=== PATIENT | female | born 1985 | race Caucasian/White ===

== ENCOUNTER 2018-10-10 07:38 | Emergency (ER) | payer BC ==
[2018-10-10] MEDS ORDERED: EPINEPHrine 1 MG/ML SDV IM ONE (07:57)
[2018-10-10] MEDS: diphenhydrAMINE 50 MG/ML SDV IM ONE ×2 (08:09→08:27)
[2018-10-10] MEDS: methylPREDNISolone Sodium Succinate 125 MG/2 ML SDV IM ONE ×2 (08:09→08:27)
[2018-10-10] MEDS ORDERED: Sodium Chloride 0.9% 1,000 ML IV ONE (08:16)
--- NOTE | 2018-10-10 08:26 | EDM.PDOC ---
ED HPI GENERAL MEDICAL PROBLEM - General Chief Complaint: Allergic Reaction Stated Complaint: SWELLING, HIVES Time Seen by Provider: 10/10/18 08:15 - History of Present Illness INITIAL COMMENTS - FREE TEXT/NARRATIVE: HISTORY AND PHYSICAL: History of present illness: Patient is a 33-year-old white female with history of urticaria who presents with urticarial rash she states she's had hoarseness and feels like her throat is tight and complains of difficulty breathing on arrival her vital signs are stable pulse oximetry is 98% Review of systems: As per history of present illness and below otherwise all systems reviewed and negative. Past medical history: As per history of present illness and as reviewed below otherwise noncontributory. Surgical history: As per history of present illness and as reviewed below otherwise noncontributory. Social history: No reported history of drug or alcohol abuse. Family history: As per history of present illness and as reviewed below otherwise noncontributory. Physical exam: HEENT: Atraumatic, normocephalic, pupils reactive, negative for conjunctival pallor or scleral icterus, mucous membranes moist, throat clear, neck supple, nontender, trachea midline. Lungs: Clear to auscultation, breath sounds equal bilaterally, chest nontender. Heart: S1S2, regular, negative for clicks, rubs, or JVD. Abdomen: Soft, nondistended, nontender. Negative for masses or hepatosplenomegaly. Negative for costovertebral tenderness. Pelvis: Stable nontender. Genitourinary: Deferred. Rectal: Deferred. Extremities: Atraumatic, negative for cords or calf pain. Neurovascular unremarkable. Neuro: Awake, alert, oriented. Cranial nerves II through XII unremarkable. Cerebellum unremarkable. Motor and sensory unremarkable throughout. Exam nonfocal. Diagnostics: Chest x-ray soft tissue neck Therapeutics: Epinephrine 0.3 I,M Solu-Medrol 125 IV Benadryl 50 IV Impression: #1 urticaria Definitive disposition and diagnosis as appropriate pending reevaluation and review of above. - Related Data Allergies Allergy/AdvReac Type Severity Reaction Status Date / Time spironolactone Allergy Facial Verified 10/10/18 07:41 Swelling Home Meds: Home Meds Dextroamphetamine/Amphetamine [Adderall] 15 mg PO ASDIRECTED 10/10/18 [History] Venlafaxine [Effexor] 75 mg PO DAILY 10/10/18 [History] Past Medical History HEENT History: Reports: Other (See Below) Other HEENT History: meningitis as child Cardiovascular History: Reports: None Respiratory History: Reports: Asthma, Other (See Below) Other Respiratory History: allergy induced, no troubles since lived in [place] Gastrointestinal History: Reports: None Genitourinary History: Reports: STD, Other (See Below) Other Genitourinary History: hx of herpes 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: Musculoskeletal History: Reports: None Neurological History: Reports: None Psychiatric History: Reports: None Endocrine/Metabolic History: Reports: None Hematologic History: Reports: None Immunologic History: Reports: None Oncologic (Cancer) History: Reports: None Dermatologic History: Reports: Psoriasis - Infectious Disease History Infectious Disease History: Reports: Herpes, Other (See Below) Other Infectious Disease History: not active currently - Past Surgical History Head Surgeries/Procedures: Reports: None HEENT Surgical History: Reports: None Cardiovascular Surgical History: Reports: None Respiratory Surgical History: Reports: None GI Surgical History: Reports: None Female Surgical History: Reports: None Endocrine Surgical History: Reports: None Neurological Surgical History: Reports: None Musculoskeletal Surgical History: Reports: None Oncologic Surgical History: Reports: None Dermatological Surgical History: Reports: None Social & Family History - Family History Family Medical History: Noncontributory HEENT: Reports: None Cardiac: Reports: [place] Neurological: Reports: Other (See Below) Other Neurological Family History: ALS probable in father Dermatologic: Reports: Psoriasis - Tobacco Use Smoking Status *Q: Never Smoker Second Hand Smoke Exposure: No - Caffeine Use Caffeine Use: Reports: Coffee - Recreational Drug Use Recreational Drug Use: No ED ROS ALLERGIC REACTION - Review of Systems Review Of Systems: ROS reveals no pertinent complaints other than HPI. ED EXAM GENERAL NO PERIP PULSE - Physical Exam Exam: See Below (See dictation) Course - Vital Signs Last Recorded V/S: Last Vital Signs Temp 36.6 C 10/10/18 07:42 Pulse 103 H 10/10/18 07:42 Resp 18 10/10/18 07:42 BP 124/64 10/10/18 07:42 Pulse Ox 97 10/10/18 07:42 - Orders/Labs/Meds Orders: Active Orders 24 hr Category Date Time Status Chest 1V Frontal [CR] Stat Exams 10/10/18 08:25 Ordered Neck Soft Tissue [CR] Stat Exams 10/10/18 08:25 Ordered Labs: Laboratory Tests 10/10/18 10/10/18 10/10/18 Range/Units 08:20 08:20 08:30 WBC 9.75 (4.0-11.0) K/uL RBC 4.88 (4.30-5.90) M/uL Hgb 14.6 (12.0-16.0) g/dL Hct 42.4 (36.0-46.0) % MCV 86.9 (80.0-98.0) fL MCH 29.9 (27.0-32.0) pg MCHC 34.4 (31.0-37.0) g/dL RDW Std Deviation 41.7 (28.0-62.0) fl RDW Coeff of Keturah 13 (11.0-15.0) % Plt Count 176 (150-400) K/uL MPV 10.10 (7.40-12.00) fL Neut % (Auto) 71.7 (48.0-80.0) % Lymph % (Auto) 24.1 (16.0-40.0) % [place] % (Auto) 4.0 (0.0-15.0) % Eos % (Auto) 0.1 (0.0-7.0) % Baso % (Auto) 0.1 (0.0-1.5) % Neut # (Auto) 7.0 H (1.4-5.7) K/uL Lymph # (Auto) 2.4 (0.6-2.4) K/uL [place] # (Auto) 0.4 (0.0-0.8) K/uL Eos # (Auto) 0.0 (0.0-0.7) K/uL Baso # (Auto) 0.0 (0.0-0.1) K/uL Nucleated RBC % 0.0 /100WBC Nucleated RBCs # 0 K/uL Sodium 138 (136-145) mmol/L Potassium 4.0 (3.5-5.1) mmol/L Chloride 104 (98-107) mmol/L Carbon Dioxide 31.0 (21.0-32.0) mmol/L BUN 17 (7.0-18.0) mg/dL Creatinine 0.8 (0.6-1.0) mg/dL Est Cr Clr Drug Dosing 79.85 mL/min Estimated GFR (MDRD) > 60.0 ml/min Glucose 90 (74-106) mg/dL Calcium 9.3 (8.5-10.1) mg/dL Total Bilirubin 0.4 (0.2-1.0) mg/dL AST 18 (15-37) IU/L ALT 18 (14-63) IU/L Alkaline Phosphatase 63 (46-116) U/L Total Protein 7.0 (6.4-8.2) g/dL Albumin 3.8 (3.4-5.0) g/dL Globulin 3.2 (2.6-4.0) g/dL Albumin/Globulin Ratio 1.2 (0.9-1.6) HCG, Qual NEGATIVE (NEG) Meds: Medications Discontinued Medications Generic Name Dose Route Start Last Admin Trade Name Freq PRN Reason Stop Dose Admin Diphenhydramine HCl 50 mg 10/10/18 07:57 10/10/18 08:27 Benadryl IM 10/10/18 07:58 Not Given ONETIME ONE Diphenhydramine HCl 50 mg 10/10/18 08:27 10/10/18 08:28 Benadryl IVPUSH 10/10/18 08:28 50 mg ONETIME ONE Administration Epinephrine HCl 0.3 mg 10/10/18 07:57 10/10/18 08:09 Adrenalin IM 10/10/18 07:58 0.3 mg ONETIME ONE Administration Sodium Chloride 1,000 mls @ 999 mls/hr 10/10/18 08:16 10/10/18 08:18 Normal Saline IV 10/10/18 09:16 999 mls/hr .Bolus ONE Administration Methylprednisolone Sodium Succinate 125 mg 10/10/18 07:57 10/10/18 08:27 Solu-Medrol IM 10/10/18 07:58 Not Given ONETIME ONE Methylprednisolone Sodium Succinate 125 mg 10/10/18 08:27 10/10/18 08:28 Solu-Medrol IVPUSH 10/10/18 08:28 125 mg ONETIME ONE Administration Departure - Departure Time of Disposition: 09:26 Disposition: Home, Self-Care 01 Condition: Good Clinical Impression: Urticaria - Discharge Information Referrals: PCP,None [Primary Care Provider] - Additional Instructions: The following information is given to patients seen in the emergency department who are being discharged to home. This information is to outline your options for follow-up care. We provide all patients seen in our emergency department with a follow-up referral. The need for follow-up, as well as the timing and circumstances, are variable depending upon the specifics of your emergency department visit. If you don't have a primary care physician on staff, we will provide you with a referral. We always advise you to contact your personal physician following an emergency department visit to inform them of the circumstance of the visit and for follow-up with them and/or the need for any referrals to a consulting specialist. The emergency department will also refer you to a specialist when appropriate. This referral assures that you have the opportunity for followup care with a specialist. All of these measure are taken in an effort to provide you with optimal care, which includes your followup. Under all circumstances we always encourage you to contact your private physician who remains a resource for coordinating your care. When calling for followup care, please make the office aware that this follow-up is from your recent emergency room visit. If for any reason you are refused follow-up, please contact the [facility] emergency department at and asked to speak to the emergency department charge nurse. Medrol Zantac Benadryl as directed EpiPen as directed follow private medical doctor for allergy immunology referral return as needed as discussed - My Orders Last 24 Hours: My Active Orders 10/10/18 08:25 Chest 1V Frontal [CR] Stat Neck Soft Tissue [CR] Stat - Assessment/Plan Last 24 Hours: My Active Orders 10/10/18 08:25 Chest 1V Frontal [CR] Stat Neck Soft Tissue [CR] Stat
[2018-10-10] MEDS ORDERED: diphenhydrAMINE 50 MG/ML SDV IVPUSH ONE (08:27)
[2018-10-10] MEDS ORDERED: methylPREDNISolone Sodium Succinate 125 MG/2 ML SDV IVPUSH ONE (08:27)
[2018-10-10 08:58] LABS: CHLORIDE,CL 104 mmol/L (98-107); SODIUM,NA 138 mmol/L (136-145)
--- NOTE | 2018-10-10 10:08 | CR ---
EXAMINATION: PA chest radiograph. HISTORY: Allergic reaction. FINDINGS: The trachea is midline. The cardiomediastinal silhouette is within normal limits. No pulmonary infiltrates, effusions or pneumothorax. Osseous structures appear unremarkable. IMPRESSION: No acute cardiopulmonary process.
--- NOTE | 2018-10-10 10:12 | CR ---
EXAMINATION: Soft tissue neck HISTORY: Allergic reaction COMPARISON: None TECHNIQUE: Lateral view FINDINGS: The prevertebral and adenoid soft tissues appear grossly normal. The epiglottis is not well characterized, this could be secondary to glossal swelling. Visualized osseous structures appear normal. Bone mineralization is otherwise normal. IMPRESSION: 1. The epiglottis is not well characterized, possibly secondary to glossal swelling, otherwise unremarkable soft tissue neck.
[2018-10-10 10:48] VITALS: BP 129/75
== END 2018-10-10 11:20 | disposition home or self-care (01) ==
LOC: MW.ED 07:38
DX: T78.3XXA Angioneurotic edema, initial encounter (principal); Z88.8 Allergy status to other drugs, medicaments and biological substances; Z79.899 Other long term (current) drug therapy
CPT/HCPCS: 70360; 71045; 80053; 84703; 85025; 96361; 96372; 96374; 96375; 99284; J0171; J1200; J2930; J7040

== ENCOUNTER 2020-06-04 01:02 | Inpatient (IN) | payer BC ==
[2020-06-04] MEDS ORDERED: Sodium Chloride 0.9% 10 ML Syringe FLUSH PRN (01:23)
[2020-06-04] MEDS ORDERED: Sodium Chloride 0.9% 2.5 ML Syringe FLUSH PRN (01:23)
[2020-06-04] MEDS ORDERED: Lidocaine 1% 50 ML MDV INJECT PRN (01:23)
[2020-06-04] MEDS ORDERED: Water For Irrigation,Sterile 1,000 ML Container IRR PRN (01:23)
[2020-06-04] MEDS ORDERED: Misoprostol 200 MCG Tab PO PRN (01:23)
[2020-06-04] MEDS ORDERED: Tranexamic Acid 1,000 MG in Sodium Chloride 0.9% 100 ML IV PRN (01:23)
[2020-06-04] MEDS ORDERED: Nalbuphine 10 MG/1 ML Vial IVPUSH PRN (01:23)
[2020-06-04] MEDS ORDERED: Sodium Chloride 0.9% 10 ML SDV IV PRN (01:23)
[2020-06-04] MEDS ORDERED: Butorphanol 1 MG/ML SDV IVPUSH PRN (01:23)
[2020-06-04] MEDS ORDERED: Misoprostol 25 MCG (1/4 of 100 MCG) Tab VAG PRN ×2 (01:23)
[2020-06-04] MEDS ORDERED: Ondansetron 4 MG/2 ML SDV IVPUSH PRN (01:23)
[2020-06-04] MEDS ORDERED: Methylergonovine 0.2 MG/1 ML Amp IM PRN (01:23)
[2020-06-04] MEDS ORDERED: Carboprost Tromethamine 250 MCG/1 ML Amp IM PRN (01:23)
[2020-06-04] MEDS ORDERED: Terbutaline 1 MG/ML SDV SUBCUT PRN (01:23)
[2020-06-04] MEDS ORDERED: Oxytocin/0.9 % Sodium Chloride 30 UNIT/500 ML BAG IV SCH ×2 (01:30)
[2020-06-04] MEDS: Lactated Ringers 1,000 ML IV SCH ×3 (12:51→15:41)
--- NOTE | 2020-06-04 13:11 | PCM.PREANE ---
Preanesthetic Assessment - Anesthesia/Transfusion/Family Hx Anesthesia History: Prior Anesthesia Without Reaction Family History of Anesthesia Reaction: No Transfusion History: No Prior Transfusion(s) Type of Transfusion Reactions: Reports: Unknown - Review of Systems General: No Symptoms Pulmonary: No Symptoms Cardiovascular: No Symptoms Gastrointestinal: No Symptoms Neurological: No Symptoms Other: Reports: None - Physical Assessment NPO Status Date: 06/04/20 NPO Status Time: 13:05 (water) Height: 1.6 m Weight: 68.492 kg ASA Class: 2 Mental Status: Alert & Oriented x3 Airway Class: Mallampati = 2 Dentition: Reports: Normal Dentition Thyro-Mental Finger Breadths: 3 Mouth Opening Finger Breadths: 3 ROM/Head Extension: Full Lungs: Clear to Auscultation, Normal Respiratory Effort Cardiovascular: Regular Rate, Regular Rhythm - Lab Values: Laboratory Last Values WBC 12.07 K/uL (4.0-11.0) H 06/04/20 02:50 RBC 4.79 M/uL (4.30-5.90) 06/04/20 02:50 Hgb 14.3 g/dL (12.0-16.0) 06/04/20 02:50 Hct 42.0 % (36.0-46.0) 06/04/20 02:50 MCV 87.7 fL (80.0-98.0) 06/04/20 02:50 MCH 29.9 pg (27.0-32.0) 06/04/20 02:50 MCHC 34.0 g/dL (31.0-37.0) 06/04/20 02:50 RDW Std Deviation 41.9 fl (28.0-62.0) 06/04/20 02:50 RDW Coeff of Keturah 13 % (11.0-15.0) 06/04/20 02:50 Plt Count 158 K/uL (150-400) 06/04/20 02:50 MPV 11.60 fL (7.40-12.00) 06/04/20 02:50 Nucleated RBC % 0.0 /100WBC 06/04/20 02:50 Nucleated RBCs # 0 K/uL 06/04/20 02:50 Blood Type O POSITIVE 06/04/20 02:50 Antibody Screen NEGATIVE 06/04/20 02:50 - Allergies Allergies/Adverse Reactions: Allergies Allergy/AdvReac Type Severity Reaction Status Date / Time spironolactone Allergy Facial Verified 05/02/20 12:13 Swelling - Acknowledgements Anesthesia Type Planned: Epidural (risks and benefits discussed. patient understands and agrees to proceed. consent signed. ) Pt an Appropriate Candidate for the Planned Anesthesia: Yes Alternatives and Risks of Anesthesia Discussed w Pt/Guardian: Yes Pt/Guardian Understands and Agrees with Anesthesia Plan: Yes PreAnesthesia Questionnaire HEENT History: Reports: Other (See Below) Other HEENT History: meningitis as child Cardiovascular History: Reports: None (on aspirin for history of gestational HTN. stopped aspirin 2 days ago. on no other blood thinners.), Other (See Below) Respiratory History: Reports: Asthma, Other (See Below) Other Respiratory History: allergy induced, no troubles since lived in [place] Gastrointestinal History: Reports: None Genitourinary History: Reports: STD, Other (See Below) Other Genitourinary History: hx of herpes RN ANGIOGRAPHY History: Reports: , Other (See Below) Other OB/BYN History: GDM with last two pregnancies, gestational HTN with first Musculoskeletal History: Reports: None Neurological History: Reports: None Psychiatric History: Reports: None Endocrine/Metabolic History: Reports: None Hematologic History: Reports: None Immunologic History: Reports: None Oncologic (Cancer) History: Reports: None Dermatologic History: Reports: Psoriasis - Infectious Disease History Infectious Disease History: Reports: Chicken Pox Other Infectious Disease History: not active currently - Past Surgical History Head Surgeries/Procedures: Reports: None HEENT Surgical History: Reports: Other (See Below) Other HEENT Surgeries/Procedures: [place] teeth removal in 2006 Cardiovascular Surgical History: Reports: None Respiratory Surgical History: Reports: None GI Surgical History: Reports: None Female Surgical History: Reports: None Endocrine Surgical History: Reports: None Neurological Surgical History: Reports: None Musculoskeletal Surgical History: Reports: None Oncologic Surgical History: Reports: None Dermatological Surgical History: Reports: None - History Comment History Comment: etoh none during . "OCCASIONAL WHEN NOT ". - SUBSTANCE USE Tobacco Use Status *Q: Never Tobacco User Second Hand Smoke Exposure: No Recreational Drug Use History: No - HOME MEDS Home Medications: Home Meds Aspirin [Aspirin EC] 1 tab PO DAILY 05/02/20 [History] Pnv No.95/Ferrous Fum/Folic AC [ Vitamin Tablet] 1 tab PO DAILY 05/02/20 [History] - CURRENT (IN HOUSE) MEDS Current Meds: Current Medications Butorphanol Tartrate (Stadol) 1 mg IVPUSH Q1H PRN PRN Reason: Pain Carboprost Tromethamine (Hemabate Ds) 250 mcg IM ASDIRECTED PRN PRN Reason: Post Hemorrhage Oxytocin/Sodium Chloride (Oxytocin 30 Unit/500 Ml-Ns) 30 unit in 500 mls @ 999 mls/hr IV TITRATE TYLOR Tranexamic Acid 1,000 mg/ (Sodium Chloride) 110 mls @ 660 mls/hr IV ONETIME PRN PRN Reason: Bleeding Oxytocin/Sodium Chloride (Oxytocin 30 Unit/500 Ml-Ns) 30 unit in 500 mls @ 2 mls/hr IV TITRATE TYLOR; Protocol Last Admin: 06/04/20 12:43 Dose: 2 munits/min, 2 mls/hr Documented by: Lactated Ringer's (Ringers, Lactated) 1,000 mls @ 150 mls/hr IV ASDIRECTED TYLOR Last Admin: 06/04/20 12:51 Dose: 999 mls/hr Documented by: Lidocaine HCl (Xylocaine 1%) 50 ml INJECT ONETIME PRN PRN Reason: Laceration repair Methylergonovine Maleate (Methergine) 0.2 mg IM ASDIRECTED PRN PRN Reason: Post Hemorrhage Misoprostol (Cytotec) 200 mcg PO ONETIME PRN PRN Reason: Post Hemorrhage Misoprostol (Cytotec) 25 mcg VAG ONETIME PRN PRN Reason: Cervical Ripening Last Admin: 06/04/20 03:11 Dose: 25 mcg Documented by: Misoprostol (Cytotec) 25 mcg VAG Q4H PRN PRN Reason: Cervical Ripening Last Admin: 06/04/20 08:00 Dose: 25 mcg Documented by: Nalbuphine HCl (Nubain) 10 mg IVPUSH Q1H PRN PRN Reason: Pain (severe 7-10) Ondansetron HCl (Zofran) 4 mg IVPUSH Q4H PRN PRN Reason: Nausea/Vomiting Sodium Chloride (Saline Flush) 10 ml FLUSH ASDIRECTED PRN PRN Reason: Keep Vein Open Sodium Chloride (Saline Flush) 2.5 ml FLUSH ASDIRECTED PRN PRN Reason: Keep Vein Open Sodium Chloride (Normal Saline) 10 ml IV ASDIRECTED PRN PRN Reason: IV Use Sterile Water (Sterile Water For Irrigation) 1,000 ml IRR ASDIRECTED PRN PRN Reason: delivery Terbutaline Sulfate (Brethine) 0.25 mg SUBCUT ASDIRECTED PRN PRN Reason: Tacysystole
[2020-06-04] MEDS ORDERED: Ropivacaine HCl/PF 100 ML ONE (13:15)
--- NOTE | 2020-06-04 14:18 | PCM.SN.2 ---
- Free Text/Narrative Note: Monitors applied. patient in sitting position. A sterile technique was used. Time out done. Patient's back was prepped with chlorhexidine, and draped. 1% lidocaine 3 ml for skin infiltration. 17 gauge touhy with amari at 6.5 cm, epidural catheter threaded easily. aspiration from epidural catheter was negative for csf, and heme. Test dose at 13:50 1.5 % lidocaine with epinephrine 3ml was negative. 13:53 Remaining 2ml of 1.5 % lidocaine with epinephrine was given. 1401. 0.2% ropivacaine infusion started. Patient states that she has 100% pain relief. Patient was able to communicate throughout the entire procedure.
[2020-06-04] MEDS ORDERED: Lanolin 100% Cream 7 GM Tube TOP PRN (18:15)
[2020-06-04] MEDS ORDERED: Docusate Sodium 100 MG Cap PO PRN (18:15)
[2020-06-04] MEDS ORDERED: Ibuprofen 400 MG Tab PO PRN (18:15)
[2020-06-04] MEDS ORDERED: Acetaminophen 500 MG Tab PO PRN (18:15)
[2020-06-04] MEDS ORDERED: Benzocaine/Menthol 20%-0.5% Spray 78 GM Cannister TOP PRN (18:15)
[2020-06-04] MEDS ORDERED: Witch Hazel Medicated Pads 40/Jar TOP PRN (18:15)
[2020-06-04] MEDS ORDERED: Bisacodyl 10 MG Supp RECTAL PRN (18:15)
--- NOTE | 2020-06-04 18:21 | PCM.DEL ---
L & D Note - General Info Date of Service: 06/04/20 - Delivery Note Labor: Augmented by Oxytocin Cervical Ripening Method: Misoprostil Delivery Outcome: Livebirth Infant Delivery Method: Spontaneous Vaginal Delivery-Single Presentation: Left Occiput Anterior (ALEXANDRU) Nuchal Cord: Present Anesthesia Type: Epidural Anesthetic: Lidocaine (Xylocaine) 1% Plain Amniotic Fluid Description: Clear Laceration: 2nd Degree Suture type: Other (monocryl) Suture size: 2-0 Cord: 3 Vessels Estimated Blood Loss: 300 Resuscitation Needed: No Score 1 min: 8 Score 5 min: 9 Delivery Comments (Free Text/Narrative):: Live Male delivered @ 1733 , 8/9 , 3120g - General Info Date of Service: 06/04/20 - Patient Data Weight - Most Recent: 68.492 kg I&O - Last 24 Hours: Intake & Output 06/04/20 06/04/20 06/04/20 06:59 14:59 22:59 Intake Total 1999 1999 Balance 1999 1999 Lab Results Last 24 Hours: Laboratory Results - last 24 hr 06/04/20 06/04/20 Range/Units 02:50 02:50 WBC 12.07 H (4.0-11.0) K/uL RBC 4.79 (4.30-5.90) M/uL Hgb 14.3 (12.0-16.0) g/dL Hct 42.0 (36.0-46.0) % MCV 87.7 (80.0-98.0) fL MCH 29.9 (27.0-32.0) pg MCHC 34.0 (31.0-37.0) g/dL RDW Std Deviation 41.9 (28.0-62.0) fl RDW Coeff of Keturah 13 (11.0-15.0) % Plt Count 158 (150-400) K/uL MPV 11.60 (7.40-12.00) fL Nucleated RBC % 0.0 /100WBC Nucleated RBCs # 0 K/uL Blood Type O POSITIVE Antibody Screen NEGATIVE Med Orders - Current: Current Medications Butorphanol Tartrate (Stadol) 1 mg IVPUSH Q1H PRN PRN Reason: Pain Carboprost Tromethamine (Hemabate Ds) 250 mcg IM ASDIRECTED PRN PRN Reason: Post Hemorrhage Oxytocin/Sodium Chloride (Oxytocin 30 Unit/500 Ml-Ns) 30 unit in 500 mls @ 999 mls/hr IV TITRATE TYLOR Tranexamic Acid 1,000 mg/ (Sodium Chloride) 110 mls @ 660 mls/hr IV ONETIME PRN PRN Reason: Bleeding Oxytocin/Sodium Chloride (Oxytocin 30 Unit/500 Ml-Ns) 30 unit in 500 mls @ 2 mls/hr IV TITRATE TYLOR; Protocol Last Titration: 06/04/20 17:34 Dose: 500 munits/min, 500 mls/hr Documented by: Lactated Ringer's (Ringers, Lactated) 1,000 mls @ 150 mls/hr IV ASDIRECTED TYLOR Last Admin: 06/04/20 15:41 Dose: 150 mls/hr Documented by: Lidocaine HCl (Xylocaine 1%) 50 ml INJECT ONETIME PRN PRN Reason: Laceration repair Last Admin: 06/04/20 17:30 Dose: 50 ml Documented by: Methylergonovine Maleate (Methergine) 0.2 mg IM ASDIRECTED PRN PRN Reason: Post Hemorrhage Misoprostol (Cytotec) 25 mcg VAG Q4H PRN PRN Reason: Cervical Ripening Last Admin: 06/04/20 08:00 Dose: 25 mcg Documented by: Nalbuphine HCl (Nubain) 10 mg IVPUSH Q1H PRN PRN Reason: Pain (severe 7-10) Ondansetron HCl (Zofran) 4 mg IVPUSH Q4H PRN PRN Reason: Nausea/Vomiting Sodium Chloride (Saline Flush) 10 ml FLUSH ASDIRECTED PRN PRN Reason: Keep Vein Open Sodium Chloride (Saline Flush) 2.5 ml FLUSH ASDIRECTED PRN PRN Reason: Keep Vein Open Sodium Chloride (Normal Saline) 10 ml IV ASDIRECTED PRN PRN Reason: IV Use Sterile Water (Sterile Water For Irrigation) 1,000 ml IRR ASDIRECTED PRN PRN Reason: delivery Last Admin: 06/04/20 17:30 Dose: 1,000 ml Documented by: Terbutaline Sulfate (Brethine) 0.25 mg SUBCUT ASDIRECTED PRN PRN Reason: Tacysystole Discontinued Medications Ropivacaine (Naropin 0.2%) Confirm Administered Dose 100 mls @ as directed .ROUTE .STK-MED ONE Stop: 06/04/20 13:16 Misoprostol (Cytotec) 200 mcg PO ONETIME PRN PRN Reason: Post Hemorrhage Misoprostol (Cytotec) 25 mcg VAG ONETIME PRN PRN Reason: Cervical Ripening Last Admin: 06/04/20 03:11 Dose: 25 mcg Documented by: - Problem List & Annotations (1) Vaginal delivery SNOMED Code(s): 293128055 Code(s): O80 - ENCOUNTER FOR FULL-TERM UNCOMPLICATED DELIVERY Status: Acute Current Visit: No - Problem List Review Problem List Initiated/Reviewed/Updated: No - My Orders Last 24 Hours: My Active Orders 06/04/20 01:23 Patient Status [ADT] Routine Bedrest Bathroom Privileges [RC] ASDIRECTED Communication Order [RC] ASDIRECTED Communication Order [RC] ASDIRECTED Communication Order [RC] ASDIRECTED May Shower [RC] ASDIRECTED Notify Provider [RC] PRN Notify Provider [RC] PRN Notify Provider [RC] PRN Notify Provider [RC] STAT Oxygen Therapy [RC] ASDIRECTED Up ad Yanira [RC] ASDIRECTED Vaginal Exam [RC] PRN Vital Signs [RC] PER UNIT ROUTINE Butorphanol [Stadol] 1 mg IVPUSH Q1H PRN Carboprost Tromethamine [Hemabate DS] 250 mcg IM ASDIRECTED PRN Lidocaine 1% [Xylocaine 1%] 50 ml INJECT ONETIME PRN Methylergonovine [Methergine] 0.2 mg IM ASDIRECTED PRN Nalbuphine [Nubain] 10 mg IVPUSH Q1H PRN Ondansetron [Zofran] 4 mg IVPUSH Q4H PRN Sodium Chloride 0.9% [Normal Saline] 10 ml IV ASDIRECTED PRN Sodium Chloride 0.9% [Saline Flush] 10 ml FLUSH ASDIRECTED PRN Sodium Chloride 0.9% [Saline Flush] 2.5 ml FLUSH ASDIRECTED PRN Terbutaline [Brethine] 0.25 mg SUBCUT ASDIRECTED PRN Tranexamic Acid [Cyklokapron] 1,000 mg Sodium Chloride 0.9% [Normal Saline] 100 ml IV ONETIME Water For Irrigation,Sterile [Sterile Water for Irrigation] 1,000 ml IRR ASDIRECTED PRN miSOPROStoL [Cytotec] 25 mcg VAG Q4H PRN Peripheral IV Insertion Adult [OM.PC] Routine 06/04/20 01:30 Lactated Ringers [Ringers, Lactated] 1,000 ml IV ASDIRECTED Oxytocin/0.9 % Sodium Chloride [Oxytocin 30 Unit/500 ML-NS] 30 unit in 500 ml IV TITRATE Oxytocin/0.9 % Sodium Chloride [Oxytocin 30 Unit/500 ML-NS] 30 unit in 500 ml IV TITRATE Medication Administration Instruction [OM.PC] Q3H 06/04/20 02:50 RPR (SYPHILIS SERO) W/ RFLX [REF] Routine 06/04/20 18:15 Acetaminophen [Tylenol Extra Strength] 1,000 mg PO Q4H PRN Acetaminophen [Tylenol Extra Strength] 500 mg PO Q4H PRN Benzocaine/Menthol [Dermoplast Pain Relief 20%-0.5% [place]] 78 gm TOP ASDIRECTED PRN Docusate Sodium [Colace] 100 mg PO BID PRN Ibuprofen [Motrin] 400 mg PO Q4H PRN Ibuprofen [Motrin] 800 mg PO Q6H PRN Lanolin [Lansinoh HPA] See Dose Instructions TOP ASDIRECTED PRN bisacodyL [Dulcolax] 10 mg RECTAL ONETIME PRN oxyCODONE 5 mg PO Q2H PRN witch Amaury [Tucks] 1 pad TOP ASDIRECTED PRN Resuscitation Status Routine 06/04/20 18:16 Patient Status [ADT] Routine May Shower [RC] ASDIRECTED Up ad Yanira [RC] ASDIRECTED Vital Signs [RC] PER UNIT ROUTINE Assess Lochia [WOMSER] Per Unit Routine Assess Uterine Involution [WOMSER] Per Unit Routine Peripheral IV Discontinue [OM.PC] Routine 06/05/20 05:11 HEMOGLOBIN/HEMATOCRIT,HH [HEME] Timed - Assessment Assessment:: 35 yo s/p [id number]
[2020-06-04] MEDS: Ibuprofen 800 MG Tab PO PRN (20:09)
[2020-06-05] MEDS: oxyCODONE 5 MG Tab PO PRN ×2 (00:26→05:10)
[2020-06-05] MEDS: Ibuprofen 800 MG Tab PO PRN ×2 (05:02→11:44)
--- NOTE | 2020-06-05 06:22 | PCM48HPAN ---
Post Anesthesia Note - EVALUATION WITHIN 48HRS OF ANESTHETIC Vital Signs in Normal Range: Yes Patient Participated in Evaluation: Yes Respiratory Function Stable: Yes Airway Patent: Yes Cardiovascular Function Stable: Yes Hydration Status Stable: Yes Pain Control Satisfactory: Yes Nausea and Vomiting Control Satisfactory: Yes Mental Status Recovered: Yes Vital Signs: Last Vital Signs Temp 36.6 C 06/05/20 01:23 Pulse 92 06/05/20 01:23 Resp 15 06/05/20 01:23 BP 114/74 06/05/20 01:23 Pulse Ox 99 06/05/20 01:23 - COMMENTS/OBSERVATIONS Free Text/Narrative:: The patient has no complaints at this time. There were no apparent anesthetic complications at this time. Discharge per primary service.
--- NOTE | 2020-06-05 08:47 | PCM.PNPP ---
- General Info Date of Service: 06/05/20 Functional Status: Reports: Pain Controlled, Tolerating Diet, Ambulating, Urinating - Review of Systems General: Reports: No Symptoms HEENT: Reports: No Symptoms Pulmonary: Reports: No Symptoms Cardiovascular: Reports: No Symptoms Gastrointestinal: Reports: No Symptoms Genitourinary: Reports: No Symptoms Musculoskeletal: Reports: No Symptoms Skin: Reports: No Symptoms Neurological: Reports: No Symptoms Psychiatric: Reports: No Symptoms - General Info Date of Service: 06/05/20 - Patient Data Vital Signs - Most Recent: Last Vital Signs Temp 36.5 C 06/05/20 04:30 Pulse 74 06/05/20 04:30 Resp 16 06/05/20 04:30 BP 104/63 06/05/20 04:30 Pulse Ox 99 06/05/20 01:23 Weight - Most Recent: 68.492 kg I&O - Last 24 Hours: Intake & Output 06/04/20 06/05/20 06/05/20 22:59 06:59 14:59 Intake Total 1999 Balance 1999 Lab Results - Last 24 Hours: Laboratory Results - last 24 hr 06/05/20 Range/Units 05:40 Hgb 12.3 (12.0-16.0) g/dL Hct 36.9 (36.0-46.0) % Med Orders - Current: Current Medications Acetaminophen (Tylenol Extra Strength) 500 mg PO Q4H PRN PRN Reason: Pain Last Admin: 06/05/20 00:25 Dose: 500 mg Documented by: Acetaminophen (Tylenol Extra Strength) 1,000 mg PO Q4H PRN PRN Reason: Pain Benzocaine/Menthol (Dermoplast Pain Relief 20%-0.5% [place]) 78 gm TOP ASDIRECTED PRN PRN Reason: Perineal Comfort Measure Last Admin: 06/04/20 20:04 Dose: 1 applic Documented by: Bisacodyl (Dulcolax) 10 mg RECTAL ONETIME PRN PRN Reason: Constipation Butorphanol Tartrate (Stadol) 1 mg IVPUSH Q1H PRN PRN Reason: Pain Carboprost Tromethamine (Hemabate Ds) 250 mcg IM ASDIRECTED PRN PRN Reason: Post Hemorrhage Docusate Sodium (Colace) 100 mg PO BID PRN PRN Reason: Constipation Emollient Ointment (Lansinoh Hpa) 0 gm TOP ASDIRECTED PRN PRN Reason: Sore Nipples Last Admin: 06/04/20 20:03 Dose: 1 applic Documented by: Oxytocin/Sodium Chloride (Oxytocin 30 Unit/500 Ml-Ns) 30 unit in 500 mls @ 999 mls/hr IV TITRATE TYLOR Tranexamic Acid 1,000 mg/ (Sodium Chloride) 110 mls @ 660 mls/hr IV ONETIME PRN PRN Reason: Bleeding Oxytocin/Sodium Chloride (Oxytocin 30 Unit/500 Ml-Ns) 30 unit in 500 mls @ 2 mls/hr IV TITRATE TYLOR; Protocol Last Titration: 06/04/20 17:34 Dose: 500 munits/min, 500 mls/hr Documented by: Lactated Ringer's (Ringers, Lactated) 1,000 mls @ 150 mls/hr IV ASDIRECTED TYLOR Last Admin: 06/04/20 15:41 Dose: 150 mls/hr Documented by: Ibuprofen (Motrin) 400 mg PO Q4H PRN PRN Reason: Pain Ibuprofen (Motrin) 800 mg PO Q6H PRN PRN Reason: Pain Last Admin: 06/05/20 05:02 Dose: 800 mg Documented by: Lidocaine HCl (Xylocaine 1%) 50 ml INJECT ONETIME PRN PRN Reason: Laceration repair Last Admin: 06/04/20 17:30 Dose: 50 ml Documented by: Methylergonovine Maleate (Methergine) 0.2 mg IM ASDIRECTED PRN PRN Reason: Post Hemorrhage Misoprostol (Cytotec) 25 mcg VAG Q4H PRN PRN Reason: Cervical Ripening Last Admin: 06/04/20 08:00 Dose: 25 mcg Documented by: Nalbuphine HCl (Nubain) 10 mg IVPUSH Q1H PRN PRN Reason: Pain (severe 7-10) Ondansetron HCl (Zofran) 4 mg IVPUSH Q4H PRN PRN Reason: Nausea/Vomiting Oxycodone HCl (Oxycodone) 5 mg PO Q2H PRN PRN Reason: Pain Last Admin: 06/05/20 05:10 Dose: 5 mg Documented by: Sodium Chloride (Saline Flush) 10 ml FLUSH ASDIRECTED PRN PRN Reason: Keep Vein Open Sodium Chloride (Saline Flush) 2.5 ml FLUSH ASDIRECTED PRN PRN Reason: Keep Vein Open Sodium Chloride (Normal Saline) 10 ml IV ASDIRECTED PRN PRN Reason: IV Use Sterile Water (Sterile Water For Irrigation) 1,000 ml IRR ASDIRECTED PRN PRN Reason: delivery Last Admin: 06/04/20 17:30 Dose: 1,000 ml Documented by: Terbutaline Sulfate (Brethine) 0.25 mg SUBCUT ASDIRECTED PRN PRN Reason: Tacysystole Witch Amaury (Tucks) 1 pad TOP ASDIRECTED PRN PRN Reason: comfort care Last Admin: 06/04/20 20:04 Dose: 1 applic Documented by: Discontinued Medications Ropivacaine (Naropin 0.2%) Confirm Administered Dose 100 mls @ as directed .ROUTE .STK-MED ONE Stop: 06/04/20 13:16 Misoprostol (Cytotec) 200 mcg PO ONETIME PRN PRN Reason: Post Hemorrhage Misoprostol (Cytotec) 25 mcg VAG ONETIME PRN PRN Reason: Cervical Ripening Last Admin: 06/04/20 03:11 Dose: 25 mcg Documented by: - Interaction Support Person: - Exam General: Alert HEENT: Pupils Equal Lungs: Clear to Auscultation Cardiovascular: Regular Rate, Regular Rhythm GI/Abdominal Exam: Normal Bowel Sounds Wound/Incisions: Healing Well Neurological: No New Focal Deficit Psy/Mental Status: Alert - Problem List & Annotations (1) Vaginal delivery SNOMED Code(s): 497823095 Code(s): O80 - ENCOUNTER FOR FULL-TERM UNCOMPLICATED DELIVERY Status: Acute Current Visit: No - Problem List Review Problem List Initiated/Reviewed/Updated: Yes - My Orders Last 24 Hours: My Active Orders 06/04/20 18:15 Acetaminophen [Tylenol Extra Strength] 1,000 mg PO Q4H PRN Acetaminophen [Tylenol Extra Strength] 500 mg PO Q4H PRN Benzocaine/Menthol [Dermoplast Pain Relief 20%-0.5% [place]] 78 gm TOP ASDIRECTED PRN Docusate Sodium [Colace] 100 mg PO BID PRN Ibuprofen [Motrin] 400 mg PO Q4H PRN Ibuprofen [Motrin] 800 mg PO Q6H PRN Lanolin [Lansinoh HPA] See Dose Instructions TOP ASDIRECTED PRN bisacodyL [Dulcolax] 10 mg RECTAL ONETIME PRN oxyCODONE 5 mg PO Q2H PRN witch Amaury [Tucks] 1 pad TOP ASDIRECTED PRN Resuscitation Status Routine 06/04/20 18:16 Patient Status [ADT] Routine May Shower [RC] ASDIRECTED Up ad Yanira [RC] ASDIRECTED Assess Lochia [WOMSER] Per Unit Routine Assess Uterine Involution [WOMSER] Per Unit Routine Peripheral IV Discontinue [OM.PC] Routine - Assessment Assessment:: 35 yo s/p P3003 PPD1 , normal lochia , , tolerating regular diet - Plan Plan:: Discharge home today Routine
[2020-06-05] MEDS: Acetaminophen 500 MG Tab PO PRN ×2 (09:00→14:44)
--- NOTE | 2020-06-05 12:22 | OR ---
SURGEON: RADHIKA CHOE DATE OF PROCEDURE: 06/04/2020 PREOPERATIVE DIAGNOSES: A 35-year-old, G3, P 2-0-0-2, at 38 weeks 3 days, status post induction of labor, history of gestational hypertension, history of a third-degree laceration. POSTOPERATIVE DIAGNOSES: A 35-year-old, G3, P 2-0-0-2, at 38 weeks 3 days, status post induction of labor, history of gestational hypertension, history of a third-degree laceration. PROCEDURE: Normal spontaneous vaginal delivery and repair of second-degree vaginal laceration. ESTIMATED BLOOD LOSS: 300. IV FLUIDS: Pitocin running. NOTES AND FINDINGS: A live male delivered at 1733. score of 8 and 9. Weight is 3120 g. BRIEF HISTORY ABOUT THE PATIENT: A 35-year-old, G3, P 2-0-0-2, at 38 weeks 3 days, who desired an earlier induction because of a history of prolonged second stage, third-degree laceration, and gestational hypertension. She was explained the risks of prematurity and induction before 39 weeks. She was willing to take the risks, and she wanted to proceed. DESCRIPTION OF PROCEDURE: The patient received Cytotec. After Cytotec, she received Pitocin. She made change, and she became fully dilated. With the patient being fully dilated, she was encouraged to push. With good pushing effort, she delivered the head, followed subsequently by the anterior and posterior shoulder. There was a cord around the neck that was reduced. Infant was placed on maternal abdomen. Delayed cord clamping was observed. Cord blood gases were obtained. Placenta was delivered via controlled cord traction. Perineum was inspected. A second- degree laceration was noted, which was repaired in layer with Monocryl 2-0. A bimanual massage was done. Bleeding was noted to be normal, and the patient was left in Labor and Delivery room in stable condition. All instrument and pad counts were correct x2. CARLOS / DOMINGO /[id number] MTDD
[2020-06-05 19:26] VITALS: BP 112/74; PULSE 82
== END 2020-06-05 19:45 | disposition home or self-care (01) | DRG 560 ==
LOC: MW.OBCHECK 01:02 → MW.OB 01:03 → MW.OBCHECK 01:23 → OBSVTOIN 17:33 → MW.OB 22:30
PROVIDERS: ADMIT Obstetrics & Gynecology; ATTEND Obstetrics & Gynecology
PROC: 10E0XZZ Delivery of Products of Conception, External Approach (ICD-10-PCS; principal; 2020-06-04)
PROC: 10907ZC Drainage of Amniotic Fluid, Therapeutic from Products of Conception, Via Natural or Artificial Opening (ICD-10-PCS; 2020-06-04)
PROC: 3E0P7VZ Introduction of Hormone into Female Reproductive, Via Natural or Artificial Opening (ICD-10-PCS; 2020-06-04)
PROC: 3E033VJ Introduction of Other Hormone into Peripheral Vein, Percutaneous Approach (ICD-10-PCS; 2020-06-04)
PROC: 0KQM0ZZ Repair Perineum Muscle, Open Approach (ICD-10-PCS; 2020-06-04)
PROC: 3E0R3BZ Introduction of Anesthetic Agent into Spinal Canal, Percutaneous Approach (ICD-10-PCS; 2020-06-04)
PROC: 00HU33Z Insertion of Infusion Device into Spinal Canal, Percutaneous Approach (ICD-10-PCS; 2020-06-04)
PROC: 4A1HXCZ Monitoring of Products of Conception, Cardiac Rate, External Approach (ICD-10-PCS; 2020-06-04)
DX: O69.81X0 Labor and delivery complicated by cord around neck, without compression, not applicable or unspecified (principal); Z3A.39 39 weeks gestation of pregnancy; Z37.0 Single live birth; O70.1 Second degree perineal laceration during delivery; O76 Abnormality in fetal heart rate and rhythm complicating labor and delivery
CPT/HCPCS: 36415; 51702; 59025; 59409; 85014; 85018; 85027; 86592; 86850; 86900; 86901; A9270-GY; J2001; J2590; J7120

== ENCOUNTER 2020-12-18 22:31 | Observation (INO) | payer BC ==
[2020-12-18] MEDS ORDERED: diphenhydrAMINE 50 MG/ML SDV ONE (22:39)
[2020-12-18] MEDS ORDERED: methylPREDNISolone Sodium Succinate 125 MG/2 ML SDV ONE (22:39)
[2020-12-18] MEDS ORDERED: Famotidine 20 MG/2 ML SDV ONE (22:40)
[2020-12-18] MEDS ORDERED: Famotidine 20 MG/2 ML SDV IVPUSH ONE (23:41)
[2020-12-18] MEDS ORDERED: diphenhydrAMINE 50 MG/ML SDV IVPUSH ONE (23:42)
[2020-12-18] MEDS ORDERED: methylPREDNISolone Sodium Succinate 125 MG/2 ML SDV IVPUSH ONE (23:42)
--- NOTE | 2020-12-18 23:42 | CR ---
INDICATION: Throat swelling, allergic reaction TECHNIQUE: Soft tissue neck 2 view. COMPARISON: None. FINDINGS: The airway is patent and normal. Epiglottis is normal. The retropharyngeal soft tissues are normal. No obvious masses. The visualized cervical spine demonstrates no significant findings. IMPRESSION: Unremarkable soft tissue views of the neck. Dictated by Robin Salcido MD @ 12/18/2020 11:40:[address] Robin Salcido @ Dec 18 2020 11:40PM
[2020-12-18] MEDS ORDERED: EPINEPHrine 1 MG/1 ML Amp IM ONE ×2 (23:43→23:45)
[2020-12-18] MEDS ORDERED: Lactated Ringers 1,000 ML IV ONE (23:46)
--- NOTE | 2020-12-19 01:57 | PCM.HP.2 ---
H&P History of Present Illness - General Date of Service: 12/19/20 Admit Problem/Dx: Admission Diagnosis/Problem Admission Diagnosis/Problem Anaphylaxis - History of Present Illness Initial Comments - Free Text/Narative: 35 yo female with pmh of anaphylaxis who presented to the ED with complaint of throat swelling and cough. She said symptoms started right after placing betamethasone ointment on her scalp. She did not take any epinephrine before arriving to the ED. IN the ED she received Epi x2, solumedrol and benadryl. She has had anaphylaxis twice before. The other times she thought it was due to the medications she was taking. She has seen an technical publications writer who she says was not able to confirm a trigger. - Related Data Allergies/Adverse Reactions: Allergies Allergy/AdvReac Type Severity Reaction Status Date / Time spironolactone Allergy Facial Verified 12/19/20 03:28 Swelling venlafaxine [From Effexor] Allergy Swelling Verified 12/19/20 03:28 Home Medications: Home Meds EPINEPHrine [Epipen 2-[place]] 0.3 mg IJ ONETIME 1 Days #1 auto.injct 12/19/20 [Rx] methylPREDNISolone [Medrol Dose Pack] 4 mg PO DAILY 6 Days #1 dospk 12/19/20 [Rx] Past Medical History - Past Health History Medical/Surgical History: Denies Medical/Surgical History HEENT History: Reports: Other (See Below) Other HEENT History: meningitis as child Cardiovascular History: Reports: None, Other (See Below) Respiratory History: Reports: Asthma, Other (See Below) Other Respiratory History: allergy induced, no troubles since lived in [place] Gastrointestinal History: Reports: None Genitourinary History: Reports: STD, Other (See Below) Other Genitourinary History: hx of herpes FABRICATION INSPECTOR History: Reports: , Other (See Below) Other OB/BYN History: GDM with last two pregnancies, gestational HTN with first Musculoskeletal History: Reports: None Neurological History: Reports: None Psychiatric History: Reports: None Endocrine/Metabolic History: Reports: None Hematologic History: Reports: None Immunologic History: Reports: None Oncologic (Cancer) History: Reports: None Dermatologic History: Reports: Psoriasis - Infectious Disease History Infectious Disease History: Reports: Chicken Pox Other Infectious Disease History: not active currently - Past Surgical History Head Surgeries/Procedures: Reports: None HEENT Surgical History: Reports: Other (See Below) Other HEENT Surgeries/Procedures: Beryl teeth removal in 2006 Cardiovascular Surgical History: Reports: None Respiratory Surgical History: Reports: None GI Surgical History: Reports: None Female Surgical History: Reports: None Endocrine Surgical History: Reports: None Neurological Surgical History: Reports: None Musculoskeletal Surgical History: Reports: None Oncologic Surgical History: Reports: None Dermatological Surgical History: Reports: None - History Comment History Comment: etoh none during . "OCCASIONAL WHEN NOT ". Social & Family History - Family History Family Medical History: No Pertinent Family History HEENT: Reports: None Cardiac: Reports: Hypertension, [place] OBGYN: Reports: Musculoskeletal: Reports: Arthritis Neurological: Reports: Other (See Below) Other Neurological Family History: ALS probable in father Endocrine/Metabolic: Reports: Hypothyroidism Dermatologic: Reports: Psoriasis - Tobacco Use Tobacco Use Status *Q: Never Tobacco User - Caffeine Use Caffeine Use: Reports: Coffee - Recreational Drug Use Recreational Drug Use: No H&P Review of Systems - Review of Systems: Review Of Systems: Comprehensive ROS is negative, except as noted in HPI. Exam - Exam Exam: See Below - Vital Signs Vital Signs: Last Vital Signs Temp 36.1 C 12/18/20 22:35 Pulse 90 12/18/20 22:35 Resp 18 12/18/20 22:35 BP 142/103 H 12/18/20 22:35 Pulse Ox 100 12/18/20 22:35 Weight: 54.431 kg - Exam General: Alert, Oriented HEENT: Mucosa Moist & [place], Posterior Pharynx Clear Neck: Supple Lungs: Clear to Auscultation, Normal Respiratory Effort Cardiovascular: Regular Rate, Regular Rhythm GI/Abdominal Exam: Normal Bowel Sounds, Soft, Non-Tender Extremities: Non-Tender, No Pedal Edema Skin: Warm, Dry, Intact Neurological: No: Focal Deficit Neuro Extensive - Mental Status: Alert, Oriented x3, Normal Mood/Affect - Patient Data Lab Results Last 24 hrs: Laboratory Results - last 24 hr 12/18/20 Range/Units 23:50 SARS-CoV-2 RNA (PB) NEGATIVE (NEGATIVE) Result Diagrams: 12/18/20 22:41 12/18/20 22:41 Sepsis Event Note - Evaluation Sepsis Screening Result: No Definite Risk - Focused Exam Vital Signs: Vital Signs Temp Pulse Resp BP Pulse Ox 12/18/20 22:35 36.1 C 90 18 142/103 H 100 Problem List Initiated/Reviewed/Updated: Yes Orders Last 24hrs: Active Orders 24 hr Category Date Time Status Admission Status [Patient Status] [ADT] Stat ADT 12/18/20 23:53 Active Antiembolic Devices [RC] PER UNIT ROUTINE Care 12/19/20 01:48 Ordered Cardiac Monitoring [RC] CONTINUOUS Care 12/19/20 01:47 Ordered Oxygen Therapy [RC] PRN Care 12/19/20 01:47 Ordered Pulse Oximetry [RC] CONTINUOUS Care 12/19/20 01:47 Ordered Up ad Yanira [RC] ASDIRECTED Care 12/19/20 01:46 Ordered VTE/DVT Education [RC] PER UNIT ROUTINE Care 12/19/20 01:47 Ordered Vital Signs [RC] Q4H Care 12/19/20 01:47 Ordered Regular Diet [DIET] Diet 12/19/20 Breakfast Ordered CBC WITH AUTO DIFF [HEME] Routine Lab 12/19/20 01:46 Ordered COMPREHENSIVE METABOLIC PN,CMP [CHEM] Routine Lab 12/19/20 01:46 Ordered Sequential Compression Device [OM.PC] Per Unit Routine Oth 12/19/20 01:47 Ordered Resuscitation Status Routine Resus Stat 12/19/20 01:46 Ordered Assessment/Plan Comment:: 35 yo female who is being admitted for monitoring after an anaphylactic episode. Patient did received two dose of epinephrine. We will monitor on pulse ox. Patient is feeling better. Her exposure could be the new steroid ointment. She was advised not to use this ointment again. She will likely need follow up with technical publications writer specialist.
--- NOTE | 2020-12-19 02:01 | EDM.PDOC ---
ED HPI GENERAL MEDICAL PROBLEM - General Chief Complaint: Allergic Reaction Stated Complaint: UNABLE TO BREATHE Time Seen by Provider: 12/18/20 22:45 - History of Present Illness INITIAL COMMENTS - FREE TEXT/NARRATIVE: CHIEF COMPLAINT(S): Throat swelling HISTORY OF PRESENT ILLNESS: This is a 35-year-old woman with a past medical history of anaphylaxis who comes to the emergency department with a chief complaint of throat swelling. The patient states that approximately 1 hour prior to arrival she was applying a steroid cream to some dermatitis on her scalp. She states that after that she started to notice that her throat was itching and then felt like her throat was swelling. She states that her voice did change. She denies any trouble breathing but states that she feels the swelling and itching in her throat. She denies any wheezing, nausea or vomiting. She denies any rash. She denies any chest pain, abdominal pain. She states that she has had anaphylaxis in the past however it did present differently. She denies any other symptoms. She denies any new soaps, lotions. She states that she did have an allergy test for which they could not find out which allergy she had. REVIEW OF SYSTEMS: Constitutional: Denies fever, chills. Eyes: Denies eye pain Ears, Nose, Mouth, & Throat: Positive for throat swelling and itchy throat. Denies earache, drooling Cardiovascular: Denies chest pain Respiratory: Denies shortness of breath Gastrointestinal: Denies Nausea, vomiting, diarrhea, hematochezia. Genitourinary: Denies hematuria Skin:Denies a rash MSK: Denies joint pain Neurological: Denies blurred vision Psychiatric: Denies depression PAST MEDICAL HISTORY: As per history of present illness and as reviewed below otherwise noncontributory. SURGICAL HISTORY: As per history of present illness and as reviewed below otherwise noncontributory. SOCIAL HISTORY: As per history of present illness and as reviewed below otherwise noncontributory. FAMILY HISTORY: As per history of present illness and as reviewed below otherwise noncontributory. EXAMINATION OF ORGAN SYSTEMS/BODY AREAS: Constitutional: Blood pressure is 142/103, heart rate 90, respiratory rate 18 with an oxygen saturation of 100% on room air. Temperature 36.1 General: Overall well-appearing woman who is in no acute distress. Psychiatric: Appropriate mood and affect. Eyes: No scleral icterus or conjunctival erythema ENMT: Moist mucous membranes. No pharyngeal erythema no tongue or uvular swelling. No trismus. No drooling. There is muffled voice. Cardiovascular: Regular, rate, and rhythm. No gallops, murmurs, or rubs. Bilateral upper extremity pulses symmetric and intact. No peripheral edema. No JVD. Respiratory: Lungs clear to auscultation bilaterally. No wheezes, rales, or rhonchi. Intermittent coughing which is nonproductive Gastrointestinal: Soft, non-tender, non-distended. Normoactive bowel sounds Genitourinary: No suprapubic tenderness Musculoskeletal: Normal range of motion. Skin: No lesions or abrasions. Neurological: Alert, GCS 15 MEDICAL DECISION MAKING AND COURSE IN THE ED WITH INTERPRETATION/REVIEW OF DIAGNOSTIC STUDIES: This is a 35-year-old and with a past medical history of anaphylaxis who comes to the emergency department with throat swelling who has muffled voice and is mildly hypertensive but is overall appearing well. There is no obvious posterior pharyngeal, uvular or tongue swelling however the patient does have a muffled voice and is intermittently coughing as if her airway is swelling. At this time we did provide the patient with cardiac monitoring and pulse oximetry. 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 Pulse oximetry was 100% with good waveform. At this time given the voice change, history of anaphylaxis we will provide the patient with 0.5 mg of IM epinephrine. We will provide her with 50 mg of IV Benadryl, 125 mg of IV Solu- Medrol and 20 mg of IV famotidine. Will obtain a neck soft tissue neck x-ray. I do not believe any other labs or imaging are indicated. After approximately 15 minutes the patient's voice had returned to normal however the patient did have some continued cough and itchiness in her throat. We will reevaluate for additional need of doses for epinephrine. After the patient returned from x-ray the patient had continued coughing and itchiness therefore I did provide the patient with an additional 0.5 mg of IM epinephrine. The patient's voice did sound better at this time and had normal heart rate and blood pressure on the monitor. The radiological images were viewed by myself along with reading the report from the radiologist. Soft tissue neck x-ray does not reveal any acute abnormality. On reevaluation the patient was more comfortable and no longer had any coughing. I did discuss with her at this time and like to admit her to the hospital for observation given our necessity to administer epinephrine and her initial presentation with throat swelling. She was amenable to this plan. We did obtain a Covid swab which is negative. I contacted Dr. Weber who accepted the patient for admission. DISPOSITION: Patient was admitted for observation in stable condition CONDITION: Fair PROCEDURES: Cardiac monitoring interpretation, pulse oximetry interpretation FINAL IMPRESSION(S)/DIAGNOSES: 1. Acute allergic reaction with throat swelling Critical Care Procedure Note Authorized and performed by: Florin Mcdaniel M.D. Critical Care Time: 46 minutes Due to a high probability of clinically significant, life threatening deterioration, the patient required my highest level of preparedness to intervene emergently and I personally spent this critical care time directly and personally managing the patient. This critical care time included obtaining a history, examining the patient, pulse oximetry; ordering and review of studies; arranging urgent treatment with development of a management plan; evaluation of a patients reponse to treatment; frequent assessment; and discussions with other providers. This critical care time was performed to assess and manage the high probability of imminent, life threatening deterioration that could result in multiorgan failure. It was exclusive of separate billable procedures and treating other patients. Please see MDM section and rest of the note for further information on patient assessment and treatment. Please see MDM section and rest of the note for further information on patient assessment and treatment. Florin Mcdaniel M.D. - Related Data Allergies Allergy/AdvReac Type Severity Reaction Status Date / Time spironolactone Allergy Facial Verified 05/02/20 12:13 Swelling venlafaxine [From Effexor] Allergy Swelling Verified 12/18/20 22:34 Home Meds: Home Meds . 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: , Other (See Below) Other DRY WALL APPLICATOR History: GDM with last two pregnancies, gestational HTN with first Musculoskeletal History: Reports: None Neurological History: Reports: None Psychiatric History: Reports: None Endocrine/Metabolic History: Reports: None Hematologic History: Reports: None Immunologic History: Reports: None Oncologic (Cancer) History: Reports: None Dermatologic History: Reports: Psoriasis - Infectious Disease History Infectious Disease History: Reports: Chicken Pox Other Infectious Disease History: not active currently - Past Surgical History Head Surgeries/Procedures: Reports: None HEENT Surgical History: Reports: Other (See Below) Other HEENT Surgeries/Procedures: [place] teeth removal in 2006 Cardiovascular Surgical History: Reports: None Respiratory Surgical History: Reports: None GI Surgical History: Reports: None Female Surgical History: Reports: None Endocrine Surgical History: Reports: None Neurological Surgical History: Reports: None Musculoskeletal Surgical History: Reports: None Oncologic Surgical History: Reports: None Dermatological Surgical History: Reports: None - History Comment History Comment: etoh none during . "OCCASIONAL WHEN NOT ". Social & Family History - Family History Family Medical History: No Pertinent Family History HEENT: Reports: None Cardiac: Reports: Hypertension, CT OBGYN: Reports: Musculoskeletal: Reports: Arthritis Neurological: Reports: Other (See Below) Other Neurological Family History: ALS probable in father Endocrine/Metabolic: Reports: Hypothyroidism Dermatologic: Reports: Psoriasis - Tobacco Use Tobacco Use Status *Q: Never Tobacco User - Caffeine Use Caffeine Use: Reports: Coffee - Recreational Drug Use Recreational Drug Use: No ED ROS GENERAL - Review of Systems Review Of Systems: See Below ED EXAM, GENERAL - Physical Exam Exam: See Below GI/Abdominal: Normal Bowel Sounds, Soft, Non-Tender Extremities: Non-Tender, No Pedal Edema Course - Vital Signs Last Recorded V/S: Last Vital Signs Temp 36.1 C 12/18/20 22:35 Pulse 90 12/18/20 22:35 Resp 18 12/18/20 22:35 BP 142/103 H 12/18/20 22:35 Pulse Ox 100 12/18/20 22:35 - Orders/Labs/Meds Orders: Active Orders 24 hr Category Date Time Status Admission Status [Patient Status] [ADT] Stat ADT 12/18/20 23:53 Active Labs: Laboratory Tests 12/18/20 12/18/20 Range/Units 22:41 23:50 WBC 10.01 (4.0-11.0) K/uL RBC 5.15 (4.30-5.90) M/uL Hgb 15.0 (12.0-16.0) g/dL Hct 45.2 (36.0-46.0) % MCV 87.8 (80.0-98.0) fL MCH 29.1 (27.0-32.0) pg MCHC 33.2 (31.0-37.0) g/dL RDW Std Deviation 41.5 (28.0-62.0) fl RDW Coeff of Keturah 13 (11.0-15.0) % Plt Count 278 (150-400) K/uL MPV 10.30 (7.40-12.00) fL Neut % (Auto) 52.3 (48.0-80.0) % Lymph % (Auto) 39.9 (16.0-40.0) % Gordon % (Auto) 4.9 (0.0-15.0) % Eos % (Auto) 2.4 (0.0-7.0) % Baso % (Auto) 0.5 (0.0-1.5) % Neut # (Auto) 5.2 (1.4-5.7) K/uL Lymph # (Auto) 4.0 H (0.6-2.4) K/uL Gordon # (Auto) 0.5 (0.0-0.8) K/uL Eos # (Auto) 0.2 (0.0-0.7) K/uL Baso # (Auto) 0.1 (0.0-0.1) K/uL Nucleated RBC % 0.0 /100WBC Nucleated RBCs # 0 K/uL SARS-CoV-2 RNA (PB) NEGATIVE (NEGATIVE) Meds: Medications Discontinued Medications Generic Name Dose Route Start Last Admin Trade Name Freq PRN Reason Stop Dose Admin Diphenhydramine HCl Confirm 12/18/20 22:39 12/18/20 23:45 Diphenhydramine 50 Mg/Ml Sdv Administered 12/18/20 22:40 Not Given Dose 50 mg .ROUTE .STK-MED ONE Diphenhydramine HCl 50 mg 12/18/20 23:42 12/18/20 23:43 Diphenhydramine 50 Mg/Ml Sdv IVPUSH 12/18/20 23:43 50 mg ONETIME ONE Administration Epinephrine HCl 0.5 mg 12/18/20 23:43 12/18/20 23:44 Epinephrine 1 Mg/1 Ml Amp IM 12/18/20 23:44 0.5 mg ONETIME ONE Administration Epinephrine HCl 0.5 mg 12/18/20 23:45 12/18/20 23:46 Epinephrine 1 Mg/1 Ml Amp IM 12/18/20 23:46 0.5 mg ONETIME ONE Administration Famotidine Confirm 12/18/20 22:40 12/18/20 23:45 Famotidine 20 Mg/2 Ml Sdv Administered 12/18/20 22:41 Not Given Dose 20 mg .ROUTE .STK-MED ONE Famotidine 20 mg 12/18/20 23:41 12/18/20 23:43 Famotidine 20 Mg/2 Ml Sdv IVPUSH 12/18/20 23:42 20 mg ONETIME ONE Administration Lactated Ringer's 1,000 mls @ 999 mls/hr 12/18/20 23:46 12/18/20 23:47 Ringers, Lactated IV 12/19/20 00:46 999 mls/hr .BOLUS ONE Administration Methylprednisolone Sodium Succinate Confirm 12/18/20 22:39 12/18/20 23:45 Methylprednisolone Sodium Succinate 125 Mg/2 Ml Sdv Administered 12/18/20 22:40 Not Given Dose 125 mg .ROUTE .STK-MED ONE Methylprednisolone Sodium Succinate 125 mg 12/18/20 23:42 12/18/20 23:43 Methylprednisolone Sodium Succinate 125 Mg/2 Ml Sdv IVPUSH 12/18/20 23:43 125 mg ONETIME ONE Administration Departure - Departure Time of Disposition: 23:50 Disposition: Refer to Observation Condition: Fair Clinical Impression: Allergic reaction, Throat swelling - Discharge Information Sepsis Event Note (ED) - Evaluation Sepsis Screening Result: No Definite Risk - Focused Exam Vital Signs: Vital Signs Temp Pulse Resp BP Pulse Ox 12/18/20 22:35 36.1 C 90 18 142/103 H 100 - My Orders Last 24 Hours: My Active Orders 12/18/20 23:53 Admission Status [Patient Status] [ADT] Stat - Assessment/Plan Last 24 Hours: My Active Orders 12/18/20 23:53 Admission Status [Patient Status] [ADT] Stat
[2020-12-19 02:18] LABS: BLOOD UREA NITROGEN,BUN 21 mg/dL (7.0-18.0); CARBON DIOXIDE,CO2 28.6 mmol/L (21.0-32.0); CHLORIDE,CL 102 mmol/L (98-107); GLUCOSE RANDOM 84 mg/dL (74-106); POTASSIUM,K 3.7 mmol/L (3.5-5.1); SODIUM,NA 140 mmol/L (136-145)
[2020-12-19] MEDS ORDERED: Ibuprofen 400 MG Tab PO ONE (09:11)
[2020-12-19] MEDS ORDERED: predniSONE 20 MG Tab PO SCH (10:00)
--- NOTE | 2020-12-19 11:18 | PCM.PN ---
- General Info Date of Service: 12/19/20 Subjective Update: Bedside: endorses feeling better but still having coughing fits and tickling sensation in lower throat . Denies any SOB, CP, wheezing and or rashes - Review of Systems General: Reports: No Symptoms HEENT: Reports: Post Nasal Drip, Other (tickle in throat ) Pulmonary: Reports: No Symptoms Cardiovascular: Reports: No Symptoms Gastrointestinal: Reports: No Symptoms Musculoskeletal: Reports: No Symptoms Skin: Denies: Pruritis, Rash Neurological: Reports: Headache Psychiatric: Reports: No Symptoms - Patient Data Vitals - Most Recent: Last Vital Signs Temp 98.1 F 12/19/20 08:29 Pulse 93 12/19/20 08:29 Resp 16 12/19/20 08:29 BP 107/60 12/19/20 08:29 Pulse Ox 97 12/19/20 08:29 Weight - Most Recent: 57.107 kg Lab Results Last 24 Hours: Laboratory Results - last 24 hr 12/18/20 12/18/20 12/18/20 Range/Units 22:41 22:41 23:50 WBC 10.01 (4.0-11.0) K/uL RBC 5.15 (4.30-5.90) M/uL Hgb 15.0 (12.0-16.0) g/dL Hct 45.2 (36.0-46.0) % MCV 87.8 (80.0-98.0) fL MCH 29.1 (27.0-32.0) pg MCHC 33.2 (31.0-37.0) g/dL RDW Std Deviation 41.5 (28.0-62.0) fl RDW Coeff of Keturah 13 (11.0-15.0) % Plt Count 278 (150-400) K/uL MPV 10.30 (7.40-12.00) fL Neut % (Auto) 52.3 (48.0-80.0) % Lymph % (Auto) 39.9 (16.0-40.0) % Posey % (Auto) 4.9 (0.0-15.0) % Eos % (Auto) 2.4 (0.0-7.0) % Baso % (Auto) 0.5 (0.0-1.5) % Neut # (Auto) 5.2 (1.4-5.7) K/uL Lymph # (Auto) 4.0 H (0.6-2.4) K/uL Posey # (Auto) 0.5 (0.0-0.8) K/uL Eos # (Auto) 0.2 (0.0-0.7) K/uL Baso # (Auto) 0.1 (0.0-0.1) K/uL Nucleated RBC % 0.0 /100WBC Nucleated RBCs # 0 K/uL Sodium 140 (136-145) mmol/L Potassium 3.7 (3.5-5.1) mmol/L Chloride 102 (98-107) mmol/L Carbon Dioxide 28.6 (21.0-32.0) mmol/L BUN 21 H (7.0-18.0) mg/dL Creatinine 0.9 (0.6-1.0) mg/dL Est Cr Clr Drug Dosing 69.66 mL/min Estimated GFR (MDRD) > 60.0 ml/min Glucose 84 (74-106) mg/dL Calcium 8.6 (8.5-10.1) mg/dL Total Bilirubin 0.2 (0.2-1.0) mg/dL AST 22 (15-37) IU/L ALT 29 (14-63) IU/L Alkaline Phosphatase 138 H (46-116) U/L Total Protein 8.3 H (6.4-8.2) g/dL Albumin 4.4 (3.4-5.0) g/dL Globulin 3.9 (2.6-4.0) g/dL Albumin/Globulin Ratio 1.1 (0.9-1.6) SARS-CoV-2 RNA (PB) NEGATIVE (NEGATIVE) Med Orders - Current: Current Medications Famotidine (Famotidine 20 Mg Tab) 20 mg PO BID [facility] Prednisone (Prednisone 20 Mg Tab) 20 mg PO BID [facility] Last Admin: 12/19/20 09:40 Dose: 20 mg Documented by: Discontinued Medications Diphenhydramine HCl (Diphenhydramine 50 Mg/Ml Sdv) Confirm Administered Dose 50 mg .ROUTE .STK-MED ONE Stop: 12/18/20 22:40 Last Admin: 12/18/20 23:45 Dose: Not Given Documented by: Diphenhydramine HCl (Diphenhydramine 50 Mg/Ml Sdv) 50 mg IVPUSH ONETIME ONE Stop: 12/18/20 23:43 Last Admin: 12/18/20 23:43 Dose: 50 mg Documented by: Epinephrine HCl (Epinephrine 1 Mg/1 Ml Amp) 0.5 mg IM ONETIME ONE Stop: 12/18/20 23:44 Last Admin: 12/18/20 23:44 Dose: 0.5 mg Documented by: Epinephrine HCl (Epinephrine 1 Mg/1 Ml Amp) 0.5 mg IM ONETIME ONE Stop: 12/18/20 23:46 Last Admin: 12/18/20 23:46 Dose: 0.5 mg Documented by: Famotidine (Famotidine 20 Mg/2 Ml Sdv) Confirm Administered Dose 20 mg .ROUTE .STK-MED ONE Stop: 12/18/20 22:41 Last Admin: 12/18/20 23:45 Dose: Not Given Documented by: Famotidine (Famotidine 20 Mg/2 Ml Sdv) 20 mg IVPUSH ONETIME ONE Stop: 12/18/20 23:42 Last Admin: 12/18/20 23:43 Dose: 20 mg Documented by: Lactated Ringer's (Ringers, Lactated) 1,000 mls @ 999 mls/hr IV .BOLUS ONE Stop: 12/19/20 00:46 Last Admin: 12/18/20 23:47 Dose: 999 mls/hr Documented by: Ibuprofen (Ibuprofen 400 Mg Tab) 400 mg PO ONETIME ONE Stop: 12/19/20 09:12 Last Admin: 12/19/20 09:40 Dose: 400 mg Documented by: Methylprednisolone Sodium Succinate (Methylprednisolone Sodium Succinate 125 M g/2 Ml Sdv) Confirm Administered Dose 125 mg .ROUTE .STK-MED ONE Stop: 12/18/20 22:40 Last Admin: 12/18/20 23:45 Dose: Not Given Documented by: Methylprednisolone Sodium Succinate (Methylprednisolone Sodium Succinate 125 Mg/2 Ml Sdv) 125 mg IVPUSH ONETIME ONE Stop: 12/18/20 23:43 Last Admin: 12/18/20 23:43 Dose: 125 mg Documented by: - Exam General: Alert, Oriented, Cooperative, No Acute Distress HEENT: EOMI, Mucous Membr. Moist/[place], Other (PND ) Neck: Supple Lungs: Clear to Auscultation, Normal Respiratory Effort Cardiovascular: Regular Rate, Regular Rhythm GI/Abdominal Exam: Soft, Non-Tender Back Exam: Normal Inspection Skin: Warm Neurological: No New Focal Deficit Psy/Mental Status: Alert, Normal Affect, Normal Mood - Patient Data Lab Results Last 24 hrs: Laboratory Results - last 24 hr 12/18/20 12/18/20 12/18/20 Range/Units 22:41 22:41 23:50 WBC 10.01 (4.0-11.0) K/uL RBC 5.15 (4.30-5.90) M/uL Hgb 15.0 (12.0-16.0) g/dL Hct 45.2 (36.0-46.0) % MCV 87.8 (80.0-98.0) fL MCH 29.1 (27.0-32.0) pg MCHC 33.2 (31.0-37.0) g/dL RDW Std Deviation 41.5 (28.0-62.0) fl RDW Coeff of Keturah 13 (11.0-15.0) % Plt Count 278 (150-400) K/uL MPV 10.30 (7.40-12.00) fL Neut % (Auto) 52.3 (48.0-80.0) % Lymph % (Auto) 39.9 (16.0-40.0) % Posey % (Auto) 4.9 (0.0-15.0) % Eos % (Auto) 2.4 (0.0-7.0) % Baso % (Auto) 0.5 (0.0-1.5) % Neut # (Auto) 5.2 (1.4-5.7) K/uL Lymph # (Auto) 4.0 H (0.6-2.4) K/uL Posey # (Auto) 0.5 (0.0-0.8) K/uL Eos # (Auto) 0.2 (0.0-0.7) K/uL Baso # (Auto) 0.1 (0.0-0.1) K/uL Nucleated RBC % 0.0 /100WBC Nucleated RBCs # 0 K/uL Sodium 140 (136-145) mmol/L Potassium 3.7 (3.5-5.1) mmol/L Chloride 102 (98-107) mmol/L Carbon Dioxide 28.6 (21.0-32.0) mmol/L BUN 21 H (7.0-18.0) mg/dL Creatinine 0.9 (0.6-1.0) mg/dL Est Cr Clr Drug Dosing 69.66 mL/min Estimated GFR (MDRD) > 60.0 ml/min Glucose 84 (74-106) mg/dL Calcium 8.6 (8.5-10.1) mg/dL Total Bilirubin 0.2 (0.2-1.0) mg/dL AST 22 (15-37) IU/L ALT 29 (14-63) IU/L Alkaline Phosphatase 138 H (46-116) U/L Total Protein 8.3 H (6.4-8.2) g/dL Albumin 4.4 (3.4-5.0) g/dL Globulin 3.9 (2.6-4.0) g/dL Albumin/Globulin Ratio 1.1 (0.9-1.6) SARS-CoV-2 RNA (PB) NEGATIVE (NEGATIVE) Result Diagrams: 12/18/20 22:41 12/18/20 22:41 Sepsis Event Note - Evaluation Sepsis Screening Result: No Definite Risk - Focused Exam Vital Signs: Vital Signs Temp Pulse Resp BP Pulse Ox Pulse Ox 12/19/20 08:29 98.1 F 93 16 107/60 97 12/19/20 03:00 95 95 12/19/20 02:29 97 16 100/60 95 12/19/20 02:09 95 98/59 L 95 12/19/20 01:59 97/52 L 95 12/19/20 01:34 104 H 102/50 L 96 12/19/20 00:59 107 H 104/56 L 96 12/19/20 00:29 103 H 105/55 L 97 12/18/20 23:40 90 115/76 95 - Problem List & Annotations (1) Allergic reaction SNOMED Code(s): 773835598 Code(s): T78.40XA - ALLERGY, UNSPECIFIED, INITIAL ENCOUNTER Status: Acute Current Visit: Yes - Problem List Review Problem List Initiated/Reviewed/Updated: Yes - My Orders Last 24 Hours: My Active Orders 12/19/20 10:00 predniSONE 20 mg PO BID 12/19/20 21:00 Famotidine [Pepcid] 20 mg PO BID - Plan Plan:: Assessment: 1. Anaphylactic reaction : improving 2. PMH: asthma Plan Continue to observe patient as she is still in the window for a biphasic reaction and still having some throat discomfort this AM Denies any CP, SOB; Will start prednisone , famotidine and continue to monitor vital signs If improving and no concerns later today; may consider discharge. Will require new epi-pen at discharge Discharge w. tapering steroids (e.g Medrol dose pack)
[2020-12-19] MEDS ORDERED: Ibuprofen 400 MG Tab PO PRN (14:35)
--- NOTE | 2020-12-19 17:49 | PCM.DCSUM1 ---
Discharge Summary - Hospital Course Free Text/Narrative:: 35 yo female with pmh of anaphylaxis who presented to the ED with complaint of throat swelling and cough. She said symptoms started right after placing betamethasone ointment on her scalp. She did not take any epinephrine before arriving to the ED. IN the ED she received Epi x2, solumedrol and benadryl. She has had anaphylaxis twice before. The other times she thought it was due to the medications she was taking. She has seen an auditor internal who she says was not able to confirm a trigger. Hospital course: Throughout stay patient was stable and did not have worsening anaphylaxis. Did complain of occasional tickling sensation in her throat but has had improved throughout her stay. Patient was continued on prednisone 20 mg twice daily and famotidine. Since etiology of anaphylaxis is still in the history advised patient to discontinue use of her topical steroid for her psoriasis and advised to follow-up with an auditor internal. Referral for auditor internal and primary care provided to patient. Advised in future that if patient develops any repeat symptoms especially for concern for biphasic reaction advised to use EpiPen and return to the ED immediately. Medrol Dosepak provided at discharge and advised to follow-up with primary care and auditor internal. Patient was continued on steroids secondary to history of asthma and history of anaphylaxis of unknown etiology. Patient was discharged in stable condition and was advised to follow-up with primary care and auditor internal team. Recommendations for return to ED provided to patient at discharge. - Discharge Data Discharge Date: 12/19/20 Discharge Disposition: Home, Self-Care 01 Condition: Stable - Referral to Home Health Primary Care Physician: PCP None - Discharge Diagnosis/Problem(s) (1) Allergic reaction SNOMED Code(s): 754842552 ICD Code: T78.40XA - ALLERGY, UNSPECIFIED, INITIAL ENCOUNTER Status: Acute - Patient Instructions Diet: Regular Diet as Tolerated Notify Provider of: Fever, Swelling and Redness, Nausea and/or Vomiting Other/Special Instructions: FOLLOW UP WITH AN MERCHANDISING EXECUTION ASSOCIATE TO HELP DETERMINE THE CAUSE FOR YOUR ALLERGIC REACTION. COMPLETE THE COURSE OF STEROIDS AND IF YOU HAVE ANY NEW SYMPTOMS OF ANAPHYLAXIS, TAKE THE EPI-PEN AND PROCEED TO THE EMERGENCY DEPARTMENT. - Discharge Plan *PRESCRIPTION DRUG MONITORING PROGRAM REVIEWED*: No *COPY OF PRESCRIPTION DRUG MONITORING REPORT IN PATIENT KELLI: No Prescriptions/Med Rec: EPINEPHrine [Epipen 2-[place]] 0.3 mg IJ ONETIME 1 Days #1 auto.injct methylPREDNISolone [Medrol Dose Pack] 4 mg PO DAILY 6 Days #1 dospk Home Medications: Home Meds EPINEPHrine [Epipen 2-[place]] 0.3 mg IJ ONETIME 1 Days #1 auto.injct 12/19/20 [Rx] methylPREDNISolone [Medrol Dose Pack] 4 mg PO DAILY 6 Days #1 dospk 12/19/20 [Rx] Patient Handouts: Epinephrine injection (Auto-injector), How to Use an Auto- Injector Pen, Anaphylactic Reaction, Adult, [id number], Methylprednisolone tablets Referrals: Breanna Tian MD [Resident] - 12/27/20 2:00 pm - Discharge Summary/Plan Comment DC Time >30 min.: No - Patient Data Vitals - Most Recent: Last Vital Signs Temp 98.1 F 12/19/20 08:29 Pulse 93 12/19/20 08:29 Resp 16 12/19/20 08:29 BP 107/60 12/19/20 08:29 Pulse Ox 97 12/19/20 08:29 Weight - Most Recent: 57.107 kg I&O - Last 24 hours: Intake & Output 12/19/20 12/19/20 12/19/20 06:59 14:59 22:59 Intake Total 1480 Balance 1480 Lab Results - Last 24 hrs: Laboratory Results - last 24 hr 12/18/20 12/18/20 12/18/20 Range/Units 22:41 22:41 23:50 WBC 10.01 (4.0-11.0) K/uL RBC 5.15 (4.30-5.90) M/uL Hgb 15.0 (12.0-16.0) g/dL Hct 45.2 (36.0-46.0) % MCV 87.8 (80.0-98.0) fL MCH 29.1 (27.0-32.0) pg MCHC 33.2 (31.0-37.0) g/dL RDW Std Deviation 41.5 (28.0-62.0) fl RDW Coeff of [place] 13 (11.0-15.0) % Plt Count 278 (150-400) K/uL MPV 10.30 (7.40-12.00) fL Neut % (Auto) 52.3 (48.0-80.0) % Lymph % (Auto) 39.9 (16.0-40.0) % [place] % (Auto) 4.9 (0.0-15.0) % Eos % (Auto) 2.4 (0.0-7.0) % Baso % (Auto) 0.5 (0.0-1.5) % Neut # (Auto) 5.2 (1.4-5.7) K/uL Lymph # (Auto) 4.0 H (0.6-2.4) K/uL [place] # (Auto) 0.5 (0.0-0.8) K/uL Eos # (Auto) 0.2 (0.0-0.7) K/uL Baso # (Auto) 0.1 (0.0-0.1) K/uL Nucleated RBC % 0.0 /100WBC Nucleated RBCs # 0 K/uL Sodium 140 (136-145) mmol/L Potassium 3.7 (3.5-5.1) mmol/L Chloride 102 (98-107) mmol/L Carbon Dioxide 28.6 (21.0-32.0) mmol/L BUN 21 H (7.0-18.0) mg/dL Creatinine 0.9 (0.6-1.0) mg/dL Est Cr Clr Drug Dosing 69.66 mL/min Estimated GFR (MDRD) > 60.0 ml/min Glucose 84 (74-106) mg/dL Calcium 8.6 (8.5-10.1) mg/dL Total Bilirubin 0.2 (0.2-1.0) mg/dL AST 22 (15-37) IU/L ALT 29 (14-63) IU/L Alkaline Phosphatase 138 H (46-116) U/L Total Protein 8.3 H (6.4-8.2) g/dL Albumin 4.4 (3.4-5.0) g/dL Globulin 3.9 (2.6-4.0) g/dL Albumin/Globulin Ratio 1.1 (0.9-1.6) SARS-CoV-2 RNA (PB) NEGATIVE (NEGATIVE) Med Orders - Current: Current Medications Famotidine (Famotidine 20 Mg Tab) 20 mg PO BID TYLOR Ibuprofen (Ibuprofen 400 Mg Tab) 400 mg PO Q4H PRN PRN Reason: Pain Last Admin: 12/19/20 15:14 Dose: 400 mg Documented by: Prednisone (Prednisone 20 Mg Tab) 20 mg PO BID TYLOR Last Admin: 12/19/20 09:40 Dose: 20 mg Documented by: Discontinued Medications Diphenhydramine HCl (Diphenhydramine 50 Mg/Ml Sdv) Confirm Administered Dose 50 mg .ROUTE .STK-MED ONE Stop: 12/18/20 22:40 Last Admin: 12/18/20 23:45 Dose: Not Given Documented by: Diphenhydramine HCl (Diphenhydramine 50 Mg/Ml Sdv) 50 mg IVPUSH ONETIME ONE Stop: 12/18/20 23:43 Last Admin: 12/18/20 23:43 Dose: 50 mg Documented by: Epinephrine HCl (Epinephrine 1 Mg/1 Ml Amp) 0.5 mg IM ONETIME ONE Stop: 12/18/20 23:44 Last Admin: 12/18/20 23:44 Dose: 0.5 mg Documented by: Epinephrine HCl (Epinephrine 1 Mg/1 Ml Amp) 0.5 mg IM ONETIME ONE Stop: 12/18/20 23:46 Last Admin: 12/18/20 23:46 Dose: 0.5 mg Documented by: Famotidine (Famotidine 20 Mg/2 Ml Sdv) Confirm Administered Dose 20 mg .ROUTE .STK-MED ONE Stop: 12/18/20 22:41 Last Admin: 12/18/20 23:45 Dose: Not Given Documented by: Famotidine (Famotidine 20 Mg/2 Ml Sdv) 20 mg IVPUSH ONETIME ONE Stop: 12/18/20 23:42 Last Admin: 12/18/20 23:43 Dose: 20 mg Documented by: Lactated Ringer's (Ringers, Lactated) 1,000 mls @ 999 mls/hr IV .BOLUS ONE Stop: 12/19/20 00:46 Last Admin: 12/18/20 23:47 Dose: 999 mls/hr Documented by: Ibuprofen (Ibuprofen 400 Mg Tab) 400 mg PO ONETIME ONE Stop: 12/19/20 09:12 Last Admin: 12/19/20 09:40 Dose: 400 mg Documented by: Methylprednisolone Sodium Succinate (Methylprednisolone Sodium Succinate 125 Mg/2 Ml Sdv) Confirm Administered Dose 125 mg .ROUTE .STK-MED ONE Stop: 12/18/20 22:40 Last Admin: 12/18/20 23:45 Dose: Not Given Documented by: Methylprednisolone Sodium Succinate (Methylprednisolone Sodium Succinate 125 Mg/2 Ml Sdv) 125 mg IVPUSH ONETIME ONE Stop: 12/18/20 23:43 Last Admin: 12/18/20 23:43 Dose: 125 mg Documented by:
[2020-12-19 18:56] VITALS: BP 108/70; PULSE 114
[2020-12-19] MEDS ORDERED: Famotidine 20 MG Tab PO SCH (21:00)
== END 2020-12-19 18:47 | disposition home or self-care (01) ==
LOC: MW.ED 22:31 → MW.MS 12-19 00:32
PROVIDERS: ADMIT Internal Medicine; ATTEND Internal Medicine
DX: T78.40XA Allergy, unspecified, initial encounter (principal); R22.1 Localized swelling, mass and lump, neck; R05 Cough; J45.909 Unspecified asthma, uncomplicated; Z88.8 Allergy status to other drugs, medicaments and biological substances; Z20.822 Contact with and (suspected) exposure to COVID-19
CPT/HCPCS: 36415; 70360; 80053; 85025; 87635; 96372; 96374; 96375; 99291; A9270; G0378; J0171; J1200; J2930; J3490; J7120; U0002

== ENCOUNTER 2022-01-09 19:16 | Emergency (ER) | payer BC ==
[2022-01-09 20:27] VITALS: BP 112/73; PULSE 89
== END 2022-01-09 19:50 | disposition home or self-care (01) ==
LOC: MW.ED 19:16
DX: J98.8 Other specified respiratory disorders (principal); Z79.899 Other long term (current) drug therapy; Z88.3 Allergy status to other anti-infective agents; Z88.8 Allergy status to other drugs, medicaments and biological substances
CPT/HCPCS: 99283; U0002

== ENCOUNTER 2023-05-09 07:21 | Emergency (ER) | payer BC ==
[2023-05-09] MEDS ORDERED: Dexamethasone 10 MG/ML SDV PO ONE (07:50)
[2023-05-09 08:13] VITALS: BP 111/74; PULSE 100
== END 2023-05-09 08:12 | disposition home or self-care (01) ==
LOC: MW.ED 07:21
DX: J02.9 Acute pharyngitis, unspecified (principal); Z88.8 Allergy status to other drugs, medicaments and biological substances
CPT/HCPCS: 87651; 99283; J8540

== ENCOUNTER 2023-08-15 17:56 | Emergency (ER) | payer BC ==
[2023-08-15] MEDS ORDERED: Codeine/Promethazine 10-6.25 MG/5 ML Syrup 5 ML UD Syringe PO STA (18:36)
[2023-08-15 19:14] VITALS: BP 119/76; PULSE 92
== END 2023-08-15 19:14 | disposition home or self-care (01) ==
LOC: MW.ED 17:56
DX: J06.9 Acute upper respiratory infection, unspecified (principal); J45.909 Unspecified asthma, uncomplicated; Z88.3 Allergy status to other anti-infective agents; Z88.5 Allergy status to narcotic agent
CPT/HCPCS: 99283; J3490